=== PATIENT | female | born 2000 | race Native Hawaiian/Other Pacific Islander ===

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

== ENCOUNTER 2022-03-20 23:15 | Emergency (ER) | payer OTHER ==
[~2022-03-20] VITALS: Ht 165.1 cm; Wt 44.2 kg
[~2022-03-20 23:15] MED LIST: MOBIC7.5 M1 PO; NITR100C56 PO
[2022-03-20 23:20] VITALS: BP 113/73; TEMP 98.5
[2022-03-21 00:52] LABS: PLATELET COUNT 256 K/uL (152-353)
== END 2022-03-21 01:10 | disposition left against medical advice (07) ==
LOC: ED 23:15
PROVIDERS: Family Medicine
DX: R10.31 Right lower quadrant pain (principal)
CPT/HCPCS: 36415; 80053; 80307; 81002; 81025; 82150; 83690; 85027; 99283